=== PATIENT | male | born 1990 | race Caucasian/White ===

== ENCOUNTER → 2018-03-26 | Outpatient (REF) | payer MEDICAID ==
[2018-03-26 21:02] LABS: PTH INTACT 32.8 PG/ML (18.5-88.0); TOTAL 25(OH) VITAMIN D 12.8 NG/ML (30.0-100.0); VITAMIN B12 LEVEL 592 PG/ML (247-911)
[2018-03-26 21:07] LABS: ALBUMIN/GLOBULIN RATIO 1.14 (1.00-1.93); ALKALINE PHOSPHATASE 93 U/L (45-117); ALT/SGPT 58 U/L (12-78); ANION GAP 9 MEQ/L (8-16); AST/SGOT 22 U/L (7-37); BLOOD UREA NITROGEN 11 MG/DL (7-18); CARBON DIOXIDE LEVEL 28 MEQ/L (21-32); CHLORIDE LEVEL 102 MEQ/L (98-107); CHOLESTEROL LEVEL 200 MG/DL (<200); CHOLESTEROL RISK RATIO 5.263 (<5); CREATININE FOR GFR 0.88 MG/DL (0.70-1.30); GLOMERULAR FILTRATION RATE > 60.0 (>60); GLUCOSE, FASTING 83 MG/DL (70-100); HDL CHOLESTEROL 38 MG/DL (>40); LDL CHOLESTEROL 138.8 MG/DL (<100); NON-HDL-C 162 MG/DL; SODIUM LEVEL 139 MEQ/L (136-145); TOTAL PROTEIN 7.5 GM/DL (6.4-8.2); TRIGLYCERIDES LEVEL 116 MG/DL (<150)
[2018-03-26 21:13] LABS: BASO # 0.1 10^3/uL (0.0-0.2); BASO % 0.8 % (0.0-1.0); EOS # 0.3 10^3/uL (0.0-0.50); EOS % 4.1 % (0.0-3.0); HEMATOCRIT 48.7 % (42.0-52.0); HEMOGLOBIN 16.1 g/dl (13.5-17.5); IMMATURE GRANULOCYTE % 0.4 % (0-3.0); LYMPH # 2.1 10^3/uL (1.5-6.5); LYMPH % 28.1 % (24.0-44.0); MEAN CORPUSCULAR HEMOGLOBIN 29.9 pg (27.0-33.0); MEAN CORPUSCULAR HGB CONC 33.1 g/dl (32.0-36.5); MEAN CORPUSCULAR VOLUME 90.4 fl (80.0-96.0); MONO # 0.5 10^3/uL (0.0-0.8); MONO % 7.1 % (0.0-5.0); NEUTROPHILS # 4.5 10^3/uL (1.8-7.7); NEUTROPHILS % 59.5 % (36.0-66.0); PLATELET COUNT, AUTOMATED 218 10^3/uL (150-450); RED BLOOD COUNT 5.39 10^6/uL (4.30-6.10); RED CELL DISTRIBUTION WIDTH 14.1 % (11.5-14.5); WHITE BLOOD COUNT 7.6 10^3/uL (4.0-10.0)
[2018-03-26 21:20] LABS: APPEARANCE, URINE CLEAR (CLEAR); BACTERIA, URINE AUTO NEGATIVE (NEGATIVE); BILIRUBIN, URINE AUTO NEGATIVE (NEGATIVE); BLOOD, URINE BLOOD NEGATIVE (NEGATIVE); COLOR, URINE AMBER (YELLOW); GLUCOSE, URINE (UA) AUTO NEGATIVE (NEGATIVE); KETONE, URINE AUTO TRACE mg/dL (NEGATIVE); LEUKOCYTE ESTERASE, URINE AUTO NEGATIVE (NEGATIVE); MUCUS, URINE SMALL (NEGATIVE); NITRITE, URINE AUTO NEGATIVE (NEGATIVE); PROTEIN, URINE AUTO NEGATIVE (NEGATIVE); RBC, URINE AUTO 0 /HPF (0-3); SPECIFIC GRAVITY URINE AUTO 1.025 (1.002-1.035); SQUAMOUS EPITHELIAL CELL UR AU 0 /HPF (0-6); WBC, URINE AUTO 2 /HPF (0-3)
== END ==
LOC: M SFHCPLAZ 17:38
DX: F32.9 Major depressive disorder, single episode, unspecified (principal); E55.9 Vitamin D deficiency, unspecified; R53.83 Other fatigue; Z13.220 Encounter for screening for lipoid disorders
CPT/HCPCS: 84443

== ENCOUNTER 2018-12-08 14:15 | Emergency (ER) | payer MEDICAID ==
[~2018-12-08] VITALS: Ht 185.4 cm; Wt 67.6 kg
[2018-12-08 14:43] LABS: BASO # 0.1 10^3/uL (0.0-0.2); BASO % 0.5 % (0.0-1.0); EOS # 0.2 10^3/uL (0.0-0.50); EOS % 1.3 % (0.0-3.0); HEMATOCRIT 50.9 % (42.0-52.0); HEMOGLOBIN 17.3 g/dl (13.5-17.5); LYMPH # 2.5 10^3/uL (1.5-6.5); LYMPH % 18.9 % (24.0-44.0); MEAN CORPUSCULAR HEMOGLOBIN 30.8 pg (27.0-33.0); MEAN CORPUSCULAR VOLUME 90.7 fl (80.0-96.0); MONO # 1.1 10^3/uL (0.0-0.8); MONO % 8.2 % (0.0-5.0); NEUTROPHILS # 9.2 10^3/uL (1.8-7.7); NEUTROPHILS % 70.8 % (36.0-66.0); PLATELET COUNT, AUTOMATED 234 10^3/uL (150-450); RED BLOOD COUNT 5.61 10^6/uL (4.30-6.10)
[2018-12-08 15:17] LABS: BLOOD UREA NITROGEN 5 MG/DL (7-18); C REACTIVE PROTEIN QUANTITATIV 3.01 MG/DL (0.00-0.30); CALCIUM LEVEL 9.1 MG/DL (8.5-10.1); CARBON DIOXIDE LEVEL 28 MEQ/L (21-32); CHLORIDE LEVEL 103 MEQ/L (98-107); CREATININE FOR GFR 0.93 MG/DL (0.70-1.30); GLOMERULAR FILTRATION RATE > 60.0 (>60); GLUCOSE, FASTING 98 MG/DL (70-100); POTASSIUM SERUM 4.2 MEQ/L (3.5-5.1); SODIUM LEVEL 138 MEQ/L (136-145)
[2018-12-08] MEDS ORDERED: ISOVUE-370 76% 100ML VIAL (Q9967) As Ordered ONE (15:41)
[2018-12-08] MEDS ORDERED: MORPHINE 4 MG/ML 1ML VIAL/SYRINGE (J2270) IV ONE (15:45)
[2018-12-08] MEDS ORDERED: CLINDAMYCIN 600 MG in APPROPRIATE DILUENT 1 EA IV ONE (15:45)
--- NOTE | 2018-12-08 16:59 | REP ---
MAXILLOFACIAL CT WITH CONTRAST: HISTORY: Right eye swelling. CONTRAST: Isovue-[id number] 75 mL. Minimal mucosal thickening is present in the maxillary and right ethmoid sinuses. The remaining sinuses are clear. Mucosal thickening involves the left osteomeatal unit. The right osteomeatal unit is patent. The middle and inferior nasal turbinates are partially paradoxical. There is marli bullosa of the right middle turbinate. There is minimal deviation of the nasal septum to the left. The cribriform plate, medial frazier of the orbits and optic canals are intact. The carotid canals form a segment of the posterolateral frazier of the sphenoid sinus. The sphenoid sinus septa insert into the internal carotid canals frazier. The contents of the orbits are normal. There is soft tissue thickening along the anterior wall of the right maxillary sinus and along the buccal surface of the right maxilla and body of the right mandible consistent with cellulitis. IMPRESSION:1. Sinus mucosal thickening as described above. 2. There is soft tissue thickening along the anterior wall of the right maxillary sinus and buccal surface of the right maxilla and mandible consistent with cellulitis. Electronically Signed by Oseas Kirkpatrick MD 12/09/2018 08:23 A
[2018-12-08] MEDS ORDERED: NORCOTAB PO (17:13)
[2018-12-08] MEDS ORDERED: CLEO300C2 PO (17:13)
[2018-12-08] MEDS ORDERED: IBUP-1022 PO (17:13)
[2018-12-08 17:28] VITALS: BP 134/91
== END 2018-12-08 17:48 | disposition home or self-care (01) ==
LOC: M ED 14:15
DX: L03.211 Cellulitis of face (principal); K02.9 Dental caries, unspecified; K08.89 Other specified disorders of teeth and supporting structures; F17.210 Nicotine dependence, cigarettes, uncomplicated; Z88.0 Allergy status to penicillin
CPT/HCPCS: 70487; 80048; 85025; 86140; 87040; 96365; 96375; 99283; J2270; Q9967

== ENCOUNTER 2022-11-02 13:44 | Emergency (ER) | payer MEDICAID ==
[~2022-11-02] VITALS: Ht 177.8 cm; Wt 77.2 kg
[~2022-11-02 13:44] MED LIST: CLEO300C2 PO; HYDR-3715 PO; IBUP-1022 PO
[2022-11-02] MEDS ORDERED: LIDOCAINE 2% MDV 20ML VIAL SC ONE (16:50)
[2022-11-02] MEDS ORDERED: BOOSTRIX/ADACEL VACCINE (DIPHTH/PERTUSS/ACELL/TETANUS) 0.5ML SYR IM ONE (16:50)
[2022-11-02 17:23] VITALS: BP 158/105
== END 2022-11-02 17:33 | disposition home or self-care (01) ==
LOC: M ED 13:44
DX: S01.111A Laceration without foreign body of right eyelid and periocular area, initial encounter (principal); S00.83XA Contusion of other part of head, initial encounter; W00.0XXA Fall on same level due to ice and snow, initial encounter; Y92.009 Unspecified place in unspecified non-institutional (private) residence as the place of occurrence of the external cause; J45.909 Unspecified asthma, uncomplicated; Z88.0 Allergy status to penicillin; Z23 Encounter for immunization

== ENCOUNTER 2022-11-11 01:24 | Emergency (ER) | payer MEDICAID ==
[~2022-11-11] VITALS: Ht 180.3 cm; Wt 68.2 kg
[2022-11-11 01:56] VITALS: BP 130/79
== END 2022-11-11 03:18 | disposition left against medical advice (07) ==
LOC: M ED 01:24
DX: Z53.21 Procedure and treatment not carried out due to patient leaving prior to being seen by health care provider (principal)